=== PATIENT | female | born 1955 | race Caucasian/White ===

== ENCOUNTER 2020-09-18 02:13 | Inpatient (IN) | payer MEDICARE, MEDICAID, SELFPAY ==
[2020-09-18] VITALS (39 sets, daily range): BP systolic 88–149; BP diastolic 49–78; PULSE 85–106; RESP 14–46; TEMP 37.1–38.1; O2SAT 56–91; BMI 47.5; BMI 47.3
--- NOTE | 2020-09-18 02:17 | XR_ITS ---
EXAMINATION: XR CHEST CLINICAL INFORMATION: Shortness of breath COMPARISON: None TECHNIQUE: Frontal view of the chest was obtained. FINDINGS: Lung volumes are symmetric. There are extensive multifocal regions of airspace opacity bilaterally. No pneumothorax is seen. No significant pleural effusion. The cardiomediastinal contour is unremarkable. No acute osseous findings are seen. XR/XR chest 1V IMPRESSION: Extensive multifocal bilateral airspace opacities which could be secondary to pneumonia or edema in the proper clinical setting.
--- NOTE | 2020-09-18 02:17 | ECG_ITS ---
Test Reason : DYSPNEA Blood Pressure : / mmHG Vent. Rate : 102 BPM Atrial Rate : 102 BPM P-R Int : 000 ms QRS Dur : 072 ms QT Int : 336 ms P-R-T Axes : 000 -35 034 degrees QTc Int : 437 ms Artifact in tracing Normal sinus rhythm Left axis deviation RSR' or QR pattern in V1 suggests right ventricular conduction delay Abnormal ECG No previous ECGs available Referred By: Eleonora Oshea Electronically Signed By:GUTIERREZ ESCALANTE
[2020-09-18] MEDS: Enoxaparin Sodium 40 MG/0.4 ML SYRINGE SUBCUT (02:39)
[2020-09-18] MEDS: dexAMETHasone sod phosphate 10 MG in 0.9 % Sodium Chloride 50 ML 204 MG IV (02:40)
--- NOTE | 2020-09-18 02:55 | ED_ITS ---
HPI - URI/Sore Throat General Chief Complaint: Upper Respiratory Symptoms Stated Complaint: Sob, covid positive Time Seen by Provider: 09/18/20 02:15 History of Present Illness HPI Narrative: Patient is a 65-year-old female with a history of diabetes, hypertension. Tested positive for coronavirus last week. Presents today with having increasing coughing shortness of breath tonight. with increased work of breathing. Patient was sent in for further evaluation. Positive fever. pat ient unable to give details secondary to extreme shortness of breath. Related Data Home Medications Medication Instructions Recorded Confirmed dulaglutide [Trulicity] 0.75 mg SUBCUT USEASDIRECTD 09/18/20 09/18/20 levothyroxine 50 mcg PO DAILY 09/18/20 09/18/20 losartan-hydrochlorothiazide 100 tab PO DAILY 09/18/20 09/18/20 metformin 500 mg PO BID 09/18/20 09/18/20 omeprazole 20 mg PO DAILY 09/18/20 09/18/20 paroxetine HCl 40 mg PO DAILY 09/18/20 09/18/20 rosuvastatin 40 mg PO DAILY 09/18/20 09/18/20 Allergies Allergy/AdvReac Type Severity Reaction Status Date / Time No Known Allergies Allergy Verified 09/18/20 02:16 Review of Systems Review of Systems: Unable to obtain review of systems secondary to patient's shortness of breath Yes Unobtainable due to mental condition [facility] Past Medical History [facility] Narrative: patient has a history of diabetes Social History Social History Alcohol intake: unknown Smoking Status: Unknown if ever smoked Use of substances other than those prescribed or required for medical reasons: Unknown Advance Directives: No Physical Exam Vital Signs: Vital Signs: Last Vital Signs Temp 98.8 F 09/18/20 02:18 Pulse 94 09/18/20 05:19 Resp 40 H 09/18/20 05:33 BP 106/64 09/18/20 05:19 Pulse Ox 88 L 09/18/20 05:19 Body Mass Index 47.5 Appearance: Alert. Oriented X3. No acute distress. Eyes: Pupils equal, round and reactive to light. ENT: Pharynx normal. Neck: Normal inspection. Neck supple. No lymph nodes noted. No crepitus CVS: Normal heart rate and rhythm. Pulses normal. Normal S1 and S2 Respiratory: positive increased respiratory rate. Positive wheezing noted bilaterally Abdomen: Soft and nontender. No rigidity. No distention. good BS x4 Skin: Skin warm and dry. Normal skin color. Normal skin turgor. Extremities: No lower extremity edema. Neurovascular intact to all extremities. No Lacerations. No Rash Neuro: Oriented X 3. No motor deficit. No sensory deficit. Moving all exte rmities. No slurred speech Course Reevaluation(s) Reevaluation #1: patient has extreme shortness of breath. Respiratory rate in the 40s. O2 sat in the 70s on a non-rebreather. Placed on high-flow O2. Placed on a non-rebreather. Given additional neb treatment. Patient's O2 sat is maintaining at approximately 88-90 at this point. Given IV fluids for the hypotension. Chest x-ray ordered. Steroids ordered. Ramdicivir ordered. Lovenox ordered. Case discussed with intensive care unit. Will come down evaluate patient. MDM - URI/Sore Throat MDM Narrative Medical decision making narrative: Patient is placed on non-rebreather with high-flow O2. O2 sat maintained at approximately 90%. Respiratory rate has dropped to approximately 35 after morphine was given. Symptomatic relief pat ient feel improved. Started patient on steroid. Lovenox given. Chest x-ray consistent with having coronavirus pneumonia. Patient's coronavirus test came back positive. Initially patient appeared dehydrated. Lactate was 3.7. 2 L of fluid was given. After consultation with hydrodynamics professor. One dose of doxycycline was given. Given patient has Coronavirus 19. [place] at this time 30 cc/kilos a Na 130 kilos woman will be too much to handle. Elect to monitor after 2 L of fluid after discussion with the hydrodynamics professor. Patient's case also discussed with the hospitalist team. Final decision for admission to the intensive care unit versus IMC will be made at approximately 06:30. Patient is full code.. patient is seen by the hydrodynamics professor will admit to the ICU. Lab Data Attestation: I reviewed the patient's lab results. Result diagrams: 09/18/20 06:31 09/18/20 02:47 Labs: Lab Results 09/18/20 09/18/20 09/18/20 Range/Units 02:46 02:47 02:47 WBC (4.8-10.8) X10*3/uL RBC (4.20-5.50) X10*6/uL Hgb (12.0-16.0) g/dl Hct (37-47) % MCV (80-98) fL MCH (27.0-33.0) pg MCHC (31.0-35.0) g/dl RDW (11.0-16.0) % Plt Count (160-400) X10*3/uL MPV (9.4-12.3) fL Immature Gran % (Auto) (0.0-0.4) % Neut % (Auto) (45-73) % Lymph % (Auto) (20-40) % [place] % (Auto) (2-11) % Eos % (Auto) (0-4) % Baso % (Auto) (0-2) % Lymph # (Auto) (1.2-4.9) X10*3/uL [place] # (Auto) (0.1-1.2) X10*3/uL Eos # (Auto) (0.0-0.4) X10*3/uL Baso # (Auto) (0.0-0.2) X10*3/uL Abs Immat Gran (auto) (0.00-0.03) X10*3/uL Absolute Neuts (auto) (2.0-8.3) X10*3/uL Absolute Nucleated RBC (0.0-0.012) X10*3/uL Nucleated RBC % (auto) (0.0-0.2) /100WBC D-Dimer 781 NG/ML Hold Blue Top Sodium 137 (135-145) mmol/L Potassium 4.8 (3.3-5.1) mmol/l Chloride 100 (96-108) mmol/L Carbon Dioxide 21 L (22-29) mmol/L Anion Gap 21 H (12-20) BUN 19 H (9-16) mg/dL Creatinine 0.85 (0.5-1.4) mg/dL Estim Creat Clear Calc 88.3 Estimated GFR > 60 Random Glucose 249 H (60-115) mg/dL Lactic Acid 3.7 H* (0.5-2.0) mmol/L Calcium 8.3 L (8.4-10.2) mg/dL Lactate Dehydrogenase 497 H (122-220) U/L Troponin I High Sens (<3.5-17.0) ng/L C-Reactive Protein 34.51 H (< or = 0.50) mg/dL B-Natriuretic Peptide (<100) pg/mL Coronavirus (PCR) (Negative) Influenza Type A (PCR) (Negative) Influenza Type B (PCR) (Negative) RSV RNA Qual (PCR) (Negative) 09/18/20 09/18/20 09/18/20 Range/Units 02:47 02:47 02:47 WBC 16.3 H (4.8-10.8) X10*3/uL RBC 4.84 (4.20-5.50) X10*6/uL Hgb 12.5 (12.0-16.0) g/dl Hct 39.9 (37-47) % MCV 82.4 (80-98) fL MCH 25.8 L (27.0-33.0) pg MCHC 31.3 (31.0-35.0) g/dl RDW 15.3 (11.0-16.0) % Plt Count 283 (160-400) X10*3/uL MPV 10.7 (9.4-12.3) fL Immature Gran % (Auto) 2.1 H (0.0-0.4) % Neut % (Auto) 87.4 H (45-73) % Lymph % (Auto) 5.9 L (20-40) % [place] % (Auto) 4.4 (2-11) % Eos % (Auto) 0.0 (0-4) % Baso % (Auto) 0.2 (0-2) % Lymph # (Auto) 1.0 L (1.2-4.9) X10*3/uL [place] # (Auto) 0.7 (0.1-1.2) X10*3/uL Eos # (Auto) 0.0 (0.0-0.4) X10*3/uL Baso # (Auto) 0.0 (0.0-0.2) X10*3/uL Abs Immat Gran (auto) 0.34 H (0.00-0.03) X10*3/uL Absolute Neuts (auto) 14.2 H (2.0-8.3) X10*3/uL Absolute Nucleated RBC 0.070 H (0.0-0.012) X10*3/uL Nucleated RBC % (auto) 0.4 H (0.0-0.2) /100WBC D-Dimer NG/ML Hold Blue Top SEE NOTE Sodium Cancelled (135-145) mmol/L Potassium Cancelled (3.3-5.1) mmol/l Chloride Cancelled (96-108) mmol/L Carbon Dioxide Cancelled (22-29) mmol/L Anion Gap Cancelled (12-20) BUN Cancelled (9-16) mg/dL Creatinine Cancelled (0.5-1.4) mg/dL Estim Creat Clear Calc Cancelled Estimated GFR Cancelled Random Glucose Cancelled (60-115) mg/dL Lactic Acid (0.5-2.0) mmol/L Calcium Cancelled (8.4-10.2) mg/dL Lactate Dehydrogenase (122-220) U/L Troponin I High Sens (<3.5-17.0) ng/L C-Reactive Protein (< or = 0.50) mg/dL B-Natriuretic Peptide (<100) pg/mL Coronavirus (PCR) (Negative) Influenza Type A (PCR) (Negative) Influenza Type B (PCR) (Negative) RSV RNA Qual (PCR) (Negative) 09/18/20 09/18/20 09/18/20 Range/Units 02:47 02:49 04:31 WBC (4.8-10.8) X10*3/uL RBC (4.20-5.50) X10*6/uL Hgb (12.0-16.0) g/dl Hct (37-47) % MCV (80-98) fL MCH (27.0-33.0) pg MCHC (31.0-35.0) g/dl RDW (11.0-16.0) % Plt Count (160-400) X10*3/uL MPV (9.4-12.3) fL Immature Gran % (Auto) (0.0-0.4) % Neut % (Auto) (45-73) % Lymph % (Auto) (20-40) % [place] % (Auto) (2-11) % Eos % (Auto) (0-4) % Baso % (Auto) (0-2) % Lymph # (Auto) (1.2-4.9) X10*3/uL [place] # (Auto) (0.1-1.2) X10*3/uL Eos # (Auto) (0.0-0.4) X10*3/uL Baso # (Auto) (0.0-0.2) X10*3/uL Abs Immat Gran (auto) (0.00-0.03) X10*3/uL Absolute Neuts (auto) (2.0-8.3) X10*3/uL Absolute Nucleated RBC (0.0-0.012) X10*3/uL Nucleated RBC % (auto) (0.0-0.2) /100WBC D-Dimer NG/ML Hold Blue Top Sodium (135-145) mmol/L Potassium (3.3-5.1) mmol/l Chloride (96-108) mmol/L Carbon Dioxide (22-29) mmol/L Anion Gap (12-20) BUN (9-16) mg/dL Creatinine (0.5-1.4) mg/dL Estim Creat Clear Calc Estimated GFR Random Glucose (60-115) mg/dL Lactic Acid 2.4 H* (0.5-2.0) mmol/L Calcium (8.4-10.2) mg/dL Lactate Dehydrogenase (122-220) U/L Troponin I High Sens 48.8 H (<3.5-17.0) ng/L C-Reactive Protein (< or = 0.50) mg/dL B-Natriuretic Peptide 156 H (<100) pg/mL Coronavirus (PCR) POSITIVE A (Negative) Influenza Type A (PCR) NEGATIVE (Negative) Influenza Type B (PCR) NEGATIVE (Negative) RSV RNA Qual (PCR) NEGATIVE (Negative) ECG Data Attestation: I personally reviewed and interpreted this ECG as follows: Interpretation: Sinus heart rate is 100 , NE QRS QT within normal limits, no acute ST segment elevation noted. Critical Care Time Critical Care Time Total Critical Care Time: 120 Attestation: I have personally provided 120 minutes of critical care time exclusive of time spent on separately billable procedures. Time includes review of lab data, radiology results, discussion with consultants, and monitoring for potential decompensation. Interventions were performed as documented above Discharge Plan Discharge Clinical Impression: COVID-19, Respiratory failure Patient Disposition: Admitted As Inpatient
[2020-09-18 02:57] LABS: MANUAL DIFF FLAG NO
[2020-09-18 02:58] LABS: Basophils Percent Auto 0.2 % (0-2); Hematocrit 39.9 % (37-47); Hemoglobin 12.5 g/dl (12.0-16.0); Imm Gran Abs Auto 0.34 X10*3/uL (0.00-0.03); Imm Gran Pct Auto 2.1 % (0.0-0.4); Lymphocytes Percent Auto 5.9 % (20-40); Mean Corpuscular HGB Conc 31.3 g/dl (31.0-35.0); Mean Corpuscular Hemoglobin 25.8 pg (27.0-33.0); Mean Corpuscular Volume 82.4 fL (80-98); Mean Platelet Volume 10.7 fL (9.4-12.3); Monocytes Absolute Auto 0.7 X10*3/uL (0.1-1.2); Monocytes Percent Auto 4.4 % (2-11); NRBC Pct Auto 0.4 /100WBC (0.0-0.2); Neutrophils Absolute Auto 14.2 X10*3/uL (2.0-8.3); Neutrophils Percent Auto 87.4 % (45-73); Platelet Count 283 X10*3/uL (160-400); Red Blood Count 4.84 X10*6/uL (4.20-5.50); Red Cell Distribution Width 15.3 % (11.0-16.0); White Blood Count 16.3 X10*3/uL (4.8-10.8)
[2020-09-18] MEDS: Morphine Sulfate 2 MG/ML CARTRIDGE IVPUSH ×5 (03:16→11:50)
[2020-09-18 03:31] LABS: Lactic Acid 3.7 mmol/L (0.5-2.0)
[2020-09-18 03:32] LABS: Anion Gap 21 (12-20); Blood Urea Nitrogen 19 mg/dL (9-16); Calcium 8.3 mg/dL (8.4-10.2); Carbon Dioxide 21 mmol/L (22-29); Chloride 100 mmol/L (96-108); Creatinine Clr Calc Pharmacy 88.3; Estimated Glomerular Filt Rate > 60; Glucose Random 249 mg/dL (60-115); Lactate Dehydrogenase 497 U/L (122-220); Potassium 4.8 mmol/l (3.3-5.1); Sodium 137 mmol/L (135-145)
--- NOTE | 2020-09-18 03:35 | PC.NURSE ---
CRITICAL LAB - LACTIC ACID 3.7 DR. JORGE AWARE OF RESULT, RN NOTIFIED.
[2020-09-18] MEDS: 0.9 % Sodium Chloride 1,000 ML 999 ML IV (03:38)
[2020-09-18 03:39] LABS: B Type Natriuretic Peptide 156 pg/mL (<100); Troponin-I High Sensitivity 48.8 ng/L (<3.5-17.0)
[2020-09-18 03:43] LABS: C Reactive Protein 34.51 mg/dL (< or = 0.50)
[2020-09-18 03:44] LABS: Influenza A PCR NEGATIVE (Negative); Influenza B PCR NEGATIVE (Negative); Resp Syncy Virus RNA Qual PCR NEGATIVE (Negative)
--- NOTE | 2020-09-18 03:46 | PC.NURSE ---
RECEIVED PHONE CALL FROM [employer]ACHINE TENDER. CALLED ON-CALL PHARMACIST. RAMDESEVIR ONLY TO BE GIVEN DURING DAY TIME. NEEDS PRIOR APPROVAL FROM LILLY WILCOX OR LITZY VAZQUEZ, CLINICAL PHARMACIST.
[2020-09-18 04:09] LABS: SARS COV2 PCR INHOUSE POSITIVE (Negative)
[2020-09-18 04:24] LABS: D Dimer 781 NG/ML
[2020-09-18 04:51] LABS: Reflex Lactate? Lactic Acid Added
[2020-09-18 05:18] LABS: Lactic Acid 2.4 mmol/L (0.5-2.0)
--- NOTE | 2020-09-18 05:22 | PM.CCHP ---
History of Present Illness Date of Service: 09/18/20 <DEEPAK Bolden - Last Filed: 09/18/20 19:46> Chief Complaint: hypoxic respiratory failure/ viral sepsis/COVID 19 <DEEPAK Bolden - Last Filed: 09/18/20 19:46> 65-year-old female with underlying history of hypertension, hyperlipidemia, diabetes, GERD, hypothyroidism presented to the emergency room overnight with complaints of having increased cough and shortness of breath for 1 day, difficulty breathing and a fever, partly she tested positive for coronavirus 1 week ago. In the emergency room initially the patient was normotensive and afebrile her O2 sat was 88% on room air she did not appear to be in any acute distress however she quickly deteriorated and developed tachypnea with respiratory rate in the 40s, hypoxia in the 70s on a non-rebreather mask she was also placed on high-flow O2. She became hypotensive, she had been started on steroids, given nebs, Lovenox and chest x-ray was obtained. This showed diffuse patchy infiltrates in the bilateral lung [place] which may be consistent with pneumonia or pulmonary edema, however given her positive cope with this is likely to represent a COVID lung. Subsequently had workup revealed a white count of 16.3 H&H of 12.5 and 39.9. Normal electrolytes and creatinine with blood sugar of 249. Lactic acid is 3.7;, troponin 48.8, BNP 156, CRP 34, D-dimer 780. Patient was given gentle amount of fluids for the 1 concern that the patient may fluid overload. She was given some morphine for respiratory distress which did help some. Currently the patient appears to have some med for breathing, breathing at 28 breaths per minute, she is normotensive and her O2 sat 90% on a high-flow non-rebreather mask with 100% FiO2. Given the high risk of decompensation, patient will be transferred to ICU. ROS: Unable to obtain due to respiratory distress Past Medical History: As above Past Surgical History: As above Family history: Unknown Social History: It is unknown if the patient was ever smoker, drinker if she ever use any drugs CODE STATUS: Full code Baseline Functionality: Unknown Allergies: No known drug allergies Home Medications: Please see med rec PHYSICAL EXAM: Sepsis exam done at 5:00 a.m. VS: Blood pressure 106/64, heart rate 94, respirations 30, O2 sat 88% on high-flow nasal cannula and non-rebreather mask was flow rate of 60%. Temperature 98.8?. ?General: Alert oriented x3 mild respiratory distress and tachypnea. Follows commands. ?Skin: Intact, no lesions, edema, erythema, clubbing or cyanosis. No ulcers. ?HEENT: Head is normocephalic, atraumatic, pupils equal round reactive to light accommodation bilaterally. Extraocular movements appear intact. Buccal mucosa is moist, Neck is supple without lymphadenopathy. ?Cardiac: Clear S1-S2, no murmurs rubs or gallops. ?Pulmonary: Coarse lung sounds bilaterally and throughout both lungs without wheezes, no clear crackles or rhonchi. ?Abdomen: Protuberant, positive bowel sounds in all 4 quadrants. Soft, nontender, no rebound or guarding. ?Musculoskeletal: Moving all 4 extremities upon request a major joints, there is no crepitus or tenderness. The strength is 5/5 bilaterally and throughout all 4 extremities. Gait not assessed at this point. ?Neurologic: As above, cranial nerves 2-12 are grossly intact. No focal deficits noted. Motor strength as above. ?Vascular: 2+ pulses upper and lower extremities distally. Less than 2nd capillary refill of the fingers and toes. SIGNIFICANT LABORATORY DATA: As above REVIEW OF IMAGES: Chest x-ray Extensive multifocal bilateral airspace opacities which could be secondary to pneumonia or edema in the proper clinical setting. EKG REVIEW: To be obtained ASSESSMENT AND PLAN: 1. Acute hypoxic respiratory failure 2. Viral sepsis in the setting of COVID-19 3. History of diabetes 4. Essential hypertension 5. Abnormal troponin likely reactive 6. Acute kidney injury with BUN to creatinine ratio more than 20 likely due to volume loss insensible losses 7. lactic and metabolic acidosis due to # 2; as well as metformin intake Admit to ICU, vital signs, I's and O's, continue with high-flow and non-rebreather mask, prone positioning; obtain COVID 19 biomarkers daily, insulin sliding scale and hold blood pressure medications for now. Recheck troponin and lactic acid, gentle hydration and recheck laboratories in the morning. Start her on steroids. Ekg if not done in ER. Will discuss with Dr. Fonseca for the possibility to place this patient on the [facility] COVID protocol. GI PROPHYLAXIS: Protonix DVT PROPHYLAXIS: Lovenox 1mg/kg Critical care time used for critical evaluation of this patient, diagnosis, treatment and coordination of care, review her records and documentation TOTAL CRITICAL CARE TIME 90 MIN . Patient's care was discussed in detail with Dr. Fonseca. He is aware of all the above as well as the plan of care for this patient. <DEEPAK Bolden - Last Filed: 09/18/20 19:46> [facility] Social History Social History: Social History Alcohol intake: unknown Smoking Status: Unknown if ever smoked Use of substances other than those prescribed or required for medical reasons: Unknown Advance Directives: No service: No Current occupational status: retired <DEEPAK Bolden - Last Filed: 09/18/20 19:46> Meds Allergies/Adverse reactions: Allergies Allergy/AdvReac Type Severity Reaction Status Date / Time No Known Allergies Allergy Verified 09/18/20 02:16 <DEEPAK Bolden - Last Filed: 09/18/20 19:46> Home medications: Home Medications Medication Instructions Recorded Confirmed Type clonazepam 0.5 mg PO BEDTIME 09/18/20 09/18/20 History dulaglutide [Trulicity] 0.75 mg SUBCUT USEASDIRECTD 09/18/20 09/18/20 History levothyroxine 75 mcg PO DAILY@0600 09/18/20 09/18/20 History omeprazole 20 mg PO DAILY 09/18/20 09/18/20 History paroxetine HCl 40 mg PO DAILY 09/18/20 09/18/20 History rosuvastatin 40 mg PO DAILY 09/18/20 09/18/20 History <DEEPAK Bolden - Last Filed: 09/18/20 19:46> Physical Exam Vital Signs: Vital Signs: Last Vital Signs Temp 98.8 F 09/18/20 02:18 Pulse 94 09/18/20 05:19 Resp 30 H 09/18/20 05:19 BP 106/64 09/18/20 05:19 Pulse Ox 88 L 09/18/20 05:19 Body Mass Index 47.5 <DEEPAK Bolden - Last Filed: 09/18/20 19:46> Results Labs CBC and Chem 7: : 09/18/20 06:31 09/18/20 06:31 <DEEPAK Bolden - Last Filed: 09/18/20 19:46> Labs: Laboratory Results - last 24 hr 09/18/20 09/18/20 09/18/20 02:46 02:47 02:47 MCV MCH MCHC RDW Plt Count MPV Immature Gran % (Auto) Neut % (Auto) Lymph % (Auto) [place] % (Auto) Eos % (Auto) Baso % (Auto) Lymph # (Auto) [place] # (Auto) Eos # (Auto) Baso # (Auto) Abs Immat Gran (auto) Absolute Neuts (auto) Absolute Nucleated RBC Nucleated RBC % (auto) D-Dimer 781 Hold Blue Top Anion Gap 21 H Estim Creat Clear Calc 88.3 Estimated GFR > 60 Random Glucose 249 H Lactic Acid 3.7 H* Calcium 8.3 L Lactate Dehydrogenase 497 H Troponin I High Sens C-Reactive Protein 34.51 H B-Natriuretic Peptide Coronavirus (PCR) Influenza Type A (PCR) Influenza Type B (PCR) RSV RNA Qual (PCR) 09/18/20 09/18/20 09/18/20 02:47 02:47 02:47 MCV 82.4 MCH 25.8 L MCHC 31.3 RDW 15.3 Plt Count 283 MPV 10.7 Immature Gran % (Auto) 2.1 H Neut % (Auto) 87.4 H Lymph % (Auto) 5.9 L [place] % (Auto) 4.4 Eos % (Auto) 0.0 Baso % (Auto) 0.2 Lymph # (Auto) 1.0 L [place] # (Auto) 0.7 Eos # (Auto) 0.0 Baso # (Auto) 0.0 Abs Immat Gran (auto) 0.34 H Absolute Neuts (auto) 14.2 H Absolute Nucleated RBC 0.070 H Nucleated RBC % (auto) 0.4 H D-Dimer Hold Blue Top SEE NOTE Anion Gap Cancelled Estim Creat Clear Calc Cancelled Estimated GFR Cancelled Random Glucose Cancelled Lactic Acid Calcium Cancelled Lactate Dehydrogenase Troponin I High Sens C-Reactive Protein B-Natriuretic Peptide Coronavirus (PCR) Influenza Type A (PCR) Influenza Type B (PCR) RSV RNA Qual (PCR) 09/18/20 09/18/20 09/18/20 02:47 02:49 04:31 MCV MCH MCHC RDW Plt Count MPV Immature Gran % (Auto) Neut % (Auto) Lymph % (Auto) [place] % (Auto) Eos % (Auto) Baso % (Auto) Lymph # (Auto) [place] # (Auto) Eos # (Auto) Baso # (Auto) Abs Immat Gran (auto) Absolute Neuts (auto) Absolute Nucleated RBC Nucleated RBC % (auto) D-Dimer Hold Blue Top Anion Gap Estim Creat Clear Calc Estimated GFR Random Glucose Lactic Acid 2.4 H* Calcium Lactate Dehydrogenase Troponin I High Sens 48.8 H C-Reactive Protein B-Natriuretic Peptide 156 H Coronavirus (PCR) POSITIVE A Influenza Type A (PCR) NEGATIVE Influenza Type B (PCR) NEGATIVE RSV RNA Qual (PCR) NEGATIVE <DEEPAK Bolden - Last Filed: 09/18/20 19:46> Imaging Radiologist's Impressions: Impressions Chest X-Ray 09/18/20 02:17 IMPRESSION: Extensive multifocal bilateral airspace opacities which could be secondary to pneumonia or edema in the proper clinical setting. <DEEPAK Bolden - Last Filed: 09/18/20 19:46>
[2020-09-18] MEDS: Doxycycline Hyclate 100 MG in 0.9 % Sodium Chloride 250 ML 166.67 MG IV ×2 (05:43→18:23)
--- NOTE | 2020-09-18 06:14 | PC.NURSE ---
PER WILL HOLD MEDS PUT IN BY ITENSIVIST UNTIL HE COMES TO CONSULT PT. PER WILL BE HERE APPROX [id number]
[2020-09-18 06:42] LABS: MANUAL DIFF FLAG NO
[2020-09-18 06:44] LABS: PCO2 VBG 53 mmhg; pH VBG 7.29 (7.32-7.43)
[2020-09-18 06:45] LABS: Base Excess VBG -2.5 mmol/L; Basophils Percent Auto 0.1 % (0-2); Blood Gas Serial # 5396; HCO3 VBG 25 mmol/L; Hematocrit 38.4 % (37-47); Hemoglobin 11.8 g/dl (12.0-16.0); Imm Gran Abs Auto 0.34 X10*3/uL (0.00-0.03); Imm Gran Pct Auto 2.3 % (0.0-0.4); Lymphocytes Absolute Auto 0.7 X10*3/uL (1.2-4.9); Lymphocytes Percent Auto 4.8 % (20-40); Mean Corpuscular HGB Conc 30.7 g/dl (31.0-35.0); Mean Corpuscular Hemoglobin 25.4 pg (27.0-33.0); Mean Corpuscular Volume 82.6 fL (80-98); Monocytes Absolute Auto 0.5 X10*3/uL (0.1-1.2); Monocytes Percent Auto 3.2 % (2-11); NRBC Pct Auto 0.5 /100WBC (0.0-0.2); Neutrophils Absolute Auto 13.1 X10*3/uL (2.0-8.3); Neutrophils Percent Auto 89.6 % (45-73); Oxygen Saturation VBG 82.5 %; PO2 VBG 53 mmhg; Platelet Count 261 X10*3/uL (160-400); Red Blood Count 4.65 X10*6/uL (4.20-5.50); Red Cell Distribution Width 15.5 % (11.0-16.0); White Blood Count 14.7 X10*3/uL (4.8-10.8)
[2020-09-18 06:46] LABS: Reflex Lactate? Lactic Acid Added
[2020-09-18 06:59] LABS: INTERNATIONAL NORM RATIO 1.5 (0.9-1.1); Prothrombin Time 17.4 SEC (10.8-13.0)
[2020-09-18 07:02] LABS: D Dimer 713 NG/ML; Partial Thromboplastin Time 44.9 SEC (24.1-38.0)
[2020-09-18 07:05] LABS: Lactic Acid 1.8 mmol/L (0.5-2.0)
[2020-09-18 07:14] LABS: Alanine Aminotransferase 26 U/L (0-31); Albumin Level 2.8 g/dL (3.5-5.0); Alkaline Phosphatase 312 U/L (39-117); Anion Gap 18 (12-20); Aspartate Amino Transferase 40 U/L (5-31); Bilirubin Direct 0.4 mg/dL (0.0-0.5); Bilirubin Total 0.8 mg/dL (0.0-1.0); Blood Urea Nitrogen 19 mg/dL (9-16); Carbon Dioxide 22 mmol/L (22-29); Chloride 103 mmol/L (96-108); Creatinine Clr Calc Pharmacy 92.7; Estimated Glomerular Filt Rate > 60; Glucose Random 256 mg/dL (60-115); Potassium 4.8 mmol/l (3.3-5.1); Sodium 138 mmol/L (135-145); Total Protein 6.6 g/dL (6.5-8.0)
--- NOTE | 2020-09-18 07:19 | PC.NURSE ---
SPOKE WITH DR SANCHEZ REGARDING STEROIDS, INFORMED DECADRON WAS GIVEN ALREADY IN ED. PER DR STANTON,P HOLD SOLUMEDROL AT THIS TIME WELL LOVENOX. REPORT GIVEN TO DEVON IN ICU. PT TO BE TRNASFERED TO UNIT. MORPHINE GIVEN ORDERED.
[2020-09-18 07:27] LABS: C Reactive Protein 34.94 mg/dL (< or = 0.50)
[2020-09-18 07:29] LABS: Procalcitonin 0.97 ng/mL
[2020-09-18 07:32] LABS: Ferritin 208 ng/mL (10-250)
[2020-09-18 08:48] LABS: Glucose, Whole Blood 257 mg/dL (60-115)
[2020-09-18] MEDS: Insulin Lispro 100 UNIT/ML 3 ML VIAL SUBCUT ×2 (09:00→12:15)
[2020-09-18 09:12] LABS: ~Lactic Acid-LAB USE ONLY 1.6 mmol/L (0.5-2.0)
[2020-09-18] MEDS: Pantoprazole Sodium 40 MG/10 ML VIAL IVPUSH (10:25)
[2020-09-18] MEDS: 0.9 % Sodium Chloride 1,000 ML 100 ML IVCONT (10:29)
[2020-09-18] MEDS: Enoxaparin Sodium 150 MG/ML SYRINGE 130 MG SUBCUT (10:40)
[2020-09-18] MEDS: fentaNYL citrate/PF 100 MCG/2 ML VIAL 50 MCG IVPUSH ×3 (11:55→22:49)
[2020-09-18] MEDS: fentaNYL citrate/NS 1,000 MCG/100 ML PLAST..BAG 5 MCG IVCONT (12:00)
[2020-09-18 12:01] LABS: Glucose, Whole Blood 273 mg/dL (60-115)
[2020-09-18] MEDS: methylPREDNISolone Sod Succ/PF 125 MG/2 ML VIAL 60 MG IVPUSH (13:02)
--- NOTE | 2020-09-18 14:05 | MHC.CM.PN ---
IMM 09/18/20 FEMALE 65 DX COVID. She lives alone and is independent. She uses a cane prn. HCP on file. DP home with vna/family transport, vs STR via BLS.CM will follow.
[2020-09-18] MEDS: Insulin Regular/NS 100 UNIT/100 ML PLAST..BAG IVCONT (16:05)
--- NOTE | 2020-09-18 17:34 | P.PNCC_ITS ---
Subjective Subjective Date of Service: 09/18/20 Interval History: Ms. Holloway was admitted to the ICU this morning with acute respiratory failure secondary to bilateral COVID pneumonia. 65-year-old female with underlying history of morbid obesity, hypertension, hyperlipidemia, diabetes, GERD, hypothyroidism presented to the emergency room overnight with complaints of having increased cough and shortness of breath for 1-2 days, difficulty breathing and a fever. Says she tested positive for coronavirus 1 week ago, but has been feeling ill since maybe a couple of days before Thanksgiving. In the emergency room initiall sat was 88% on room air she did not appear to be in any acute distress, however she quickly deteriorated and developed tachypnea with respiratory rate in the 40s, hypoxia in the 70s on a non-rebreather mask she was also placed on high-flow O2. CXR showed diffuse bilat patchy infiltrates consistent with COVID pneumonia. Biomarkers showed DDimer 781, LDH 497, CRP 34, Ferritin 208. She was given gentle amount of fluids and morphine for respiratory distress, Decadron and doxycycline. I saw her in the ED. She was breathing w a RR of 35 but with no increased work of breathing other than that attributable to her respiratory rate. Sat was mid 80s on 100% high-flow plus the non-rebreather set on 15 L. She looked quite comfortable. I asked her if she could breathe like this for the next week and she just shrugged her shoulders. I discussed with her the significance of what was going on and the possibility of her needing to go on a ventilator. She shook her head that she did not want that. She was tx to ICU. The patient was found to have 2 healthcare proxies dated approximately 2013 and 2017, both of which said that she wanted to have DNR stat us. In the ICU, on 100% high-flow plus the non-rebreather set on full flush, sat was in the high 70s. Again I talked to her about the ventilator. I specifically talked to her about the ventilator versus dying. She pointed to the DNR/DNI sign on the white board in her room, and she said that that is what she wants. She made it clear also to her nurse that she did not want to be intubated. We got her on to BiPAP and on BiPAP 07/27/1990 5%, she is satting 88%, RR 30s, Vt 450, and put her on a fentanyl infusion to control her RR and WOB. I spoke to the patient's sister Nydia Owusu ([phone]) who is her healthcare proxy. I confirmed that with the patient. Rebecca told me that she has not spoke with Nydia for about 2 years. Nydia told me that they are estranged. It was choices understanding that Rebecca wanted DNR status. I asked Nydia to talk to her family -- her children and her other sisters -- about whether they were okay with that. For now, the patient will have DNR/DNI status. Critical care time (including mult visits to the bedside, oxygen and then NIV settings): 75+ min. Physical Exam Vital Signs: Vital Signs: Last Vital Signs Temp 100.6 F H 09/18/20 15:57 Pulse 88 09/18/20 15:57 Resp 33 H 09/18/20 15:57 BP 94/52 L 09/18/20 15:57 Pulse Ox 89 L 09/18/20 15:57 Body Mass Index 47.3 Objective Data Labs CBC & Chem 7: 09/18/20 06:31 09/18/20 06:31 Labs: Laboratory Results - last 24 hr 09/18/20 09/18/20 09/18/20 02:46 02:47 02:47 WBC RBC Hgb Hct MCV MCH MCHC RDW Plt Count MPV Immature Gran % (Auto) Neut % (Auto) Lymph % (Auto) Mcmullen % (Auto) Eos % (Auto) Baso % (Auto) Lymph # (Auto) Mcmullen # (Auto) Eos # (Auto) Baso # (Auto) Abs Immat Gran (auto) Absolute Neuts (auto) Absolute Nucleated RBC Nucleated RBC % (auto) PT INR APTT D-Dimer 781 Hold Blue Top VBG pH VBG pCO2 VBG pO2 VBG HCO3 VBG O2 Saturation VBG Base Excess Sodium 137 Potassium 4.8 Chloride 100 Carbon Dioxide 21 L Anion Gap 21 H BUN 19 H Creatinine 0.85 Estim Creat Clear Calc 88.3 Estimated GFR > 60 POC Glucose Random Glucose 249 H Lactic Acid 3.7 H* Lactic Acid Fup @ 2Hr Calcium 8.3 L Ferritin Total Bilirubin Direct Bilirubin AST ALT Alkaline Phosphatase Lactate Dehydrogenase 497 H Troponin I High Sens C-Reactive Protein 34.51 H B-Natriuretic Peptide Total Protein Albumin Procalcitonin Coronavirus (PCR) Influenza Type A (PCR) Influenza Type B (PCR) RSV RNA Qual (PCR) 09/18/20 09/18/20 09/18/20 02:47 02:47 02:47 WBC 16.3 H RBC 4.84 Hgb 12.5 Hct 39.9 MCV 82.4 MCH 25.8 L MCHC 31.3 RDW 15.3 Plt Count 283 MPV 10.7 Immature Gran % (Auto) 2.1 H Neut % (Auto) 87.4 H Lymph % (Auto) 5.9 L Mcmullen % (Auto) 4.4 Eos % (Auto) 0.0 Baso % (Auto) 0.2 Lymph # (Auto) 1.0 L Mcmullen # (Auto) 0.7 Eos # (Auto) 0.0 Baso # (Auto) 0.0 Abs Immat Gran (auto) 0.34 H Absolute Neuts (auto) 14.2 H Absolute Nucleated RBC 0.070 H Nucleated RBC % (auto) 0.4 H PT INR APTT D-Dimer Hold Blue Top SEE NOTE VBG pH VBG pCO2 VBG pO2 VBG HCO3 VBG O2 Saturation VBG Base Excess Sodium Cancelled Potassium Cancelled Chloride Cancelled Carbon Dioxide Cancelled Anion Gap Cancelled BUN Cancelled Creatinine Cancelled Estim Creat Clear Calc Cancelled Estimated GFR Cancelled POC Glucose Random Glucose Cancelled Lactic Acid Lactic Acid Fup @ 2Hr Calcium Cancelled Ferritin Total Bilirubin Direct Bilirubin AST ALT Alkaline Phosphatase Lactate Dehydrogenase Troponin I High Sens C-Reactive Protein B-Natriuretic Peptide Total Protein Albumin Procalcitonin Coronavirus (PCR) Influenza Type A (PCR) Influenza Type B (PCR) RSV RNA Qual (PCR) 09/18/20 09/18/20 09/18/20 02:47 02:49 04:31 WBC RBC Hgb Hct MCV MCH MCHC RDW Plt Count MPV Immature Gran % (Auto) Neut % (Auto) Lymph % (Auto) Mcmullen % (Auto) Eos % (Auto) Baso % (Auto) Lymph # (Auto) Mcmullen # (Auto) Eos # (Auto) Baso # (Auto) Abs Immat Gran (auto) Absolute Neuts (auto) Absolute Nucleated RBC Nucleated RBC % (auto) PT INR APTT D-Dimer Hold Blue Top VBG pH VBG pCO2 VBG pO2 VBG HCO3 VBG O2 Saturation VBG Base Excess Sodium Potassium Chloride Carbon Dioxide Anion Gap BUN Creatinine Estim Creat Clear Calc Estimated GFR POC Glucose Random Glucose Lactic Acid 2.4 H* Lactic Acid Fup @ 2Hr Calcium Ferritin Total Bilirubin Direct Bilirubin AST ALT Alkaline Phosphatase Lactate Dehydrogenase Troponin I High Sens 48.8 H C-Reactive Protein B-Natriuretic Peptide 156 H Total Protein Albumin Procalcitonin Coronavirus (PCR) POSITIVE A Influenza Type A (PCR) NEGATIVE Influenza Type B (PCR) NEGATIVE RSV RNA Qual (PCR) NEGATIVE 09/18/20 09/18/20 09/18/20 06:31 06:31 06:31 WBC 14.7 H RBC 4.65 Hgb 11.8 L Hct 38.4 MCV 82.6 MCH 25.4 L MCHC 30.7 L RDW 15.5 Plt Count 261 MPV 11.0 Immature Gran % (Auto) 2.3 H Neut % (Auto) 89.6 H Lymph % (Auto) 4.8 L Mcmullen % (Auto) 3.2 Eos % (Auto) 0.0 Baso % (Auto) 0.1 Lymph # (Auto) 0.7 L Mcmullen # (Auto) 0.5 Eos # (Auto) 0.0 Baso # (Auto) 0.0 Abs Immat Gran (auto) 0.34 H Absolute Neuts (auto) 13.1 H Absolute Nucleated RBC 0.070 H Nucleated RBC % (auto) 0.5 H PT INR APTT D-Dimer Cancelled Hold Blue Top VBG pH VBG pCO2 VBG pO2 VBG HCO3 VBG O2 Saturation VBG Base Excess Sodium Potassium Chloride Carbon Dioxide Anion Gap BUN Creatinine Estim Creat Clear Calc Estimated GFR POC Glucose Random Glucose Lactic Acid 1.8 Lactic Acid Fup @ 2Hr Calcium Ferritin Total Bilirubin Direct Bilirubin AST ALT Alkaline Phosphatase Lactate Dehydrogenase Troponin I High Sens C-Reactive Protein B-Natriuretic Peptide Total Protein Albumin Procalcitonin Coronavirus (PCR) Influenza Type A (PCR) Influenza Type B (PCR) RSV RNA Qual (PCR) 09/18/20 09/18/20 09/18/20 06:31 06:31 06:31 WBC RBC Hgb Hct MCV MCH MCHC RDW Plt Count MPV Immature Gran % (Auto) Neut % (Auto) Lymph % (Auto) Mcmullen % (Auto) Eos % (Auto) Baso % (Auto) Lymph # (Auto) Mcmullen # (Auto) Eos # (Auto) Baso # (Auto) Abs Immat Gran (auto) Absolute Neuts (auto) Absolute Nucleated RBC Nucleated RBC % (auto) PT INR APTT D-Dimer Hold Blue Top VBG pH 7.29 L VBG pCO2 53 VBG pO2 53 VBG HCO3 25 VBG O2 Saturation 82.5 VBG Base Excess -2.5 Sodium 138 Potassium 4.8 Chloride 103 Carbon Dioxide 22 Anion Gap 18 BUN 19 H Creatinine 0.81 Estim Creat Clear Calc 92.7 Estimated GFR > 60 POC Glucose Random Glucose 256 H Lactic Acid Lactic Acid Fup @ 2Hr Calcium 8.0 L Ferritin 208 Total Bilirubin 0.8 Direct Bilirubin 0.4 AST 40 H ALT 26 Alkaline Phosphatase 312 H Lactate Dehydrogenase Troponin I High Sens C-Reactive Protein 34.94 H B-Natriuretic Peptide Total Protein 6.6 Albumin 2.8 L Procalcitonin 0.97 Coronavirus (PCR) Influenza Type A (PCR) Influenza Type B (PCR) RSV RNA Qual (PCR) 09/18/20 09/18/20 09/18/20 06:31 08:42 08:44 WBC RBC Hgb Hct MCV MCH MCHC RDW Plt Count MPV Immature Gran % (Auto) Neut % (Auto) Lymph % (Auto) Mcmullen % (Auto) Eos % (Auto) Baso % (Auto) Lymph # (Auto) Mcmullen # (Auto) Eos # (Auto) Baso # (Auto) Abs Immat Gran (auto) Absolute Neuts (auto) Absolute Nucleated RBC Nucleated RBC % (auto) PT 17.4 H INR 1.5 H APTT 44.9 H D-Dimer 713 Hold Blue Top VBG pH VBG pCO2 VBG pO2 VBG HCO3 VBG O2 Saturation VBG Base Excess Sodium Potassium Chloride Carbon Dioxide Anion Gap BUN Creatinine Estim Creat Clear Calc Estimated GFR POC Glucose 257 H Random Glucose Lactic Acid Lactic Acid Fup @ 2Hr 1.6 Calcium Ferritin Total Bilirubin Direct Bilirubin AST ALT Alkaline Phosphatase Lactate Dehydrogenase Troponin I High Sens C-Reactive Protein B-Natriuretic Peptide Total Protein Albumin Procalcitonin Coronavirus (PCR) Influenza Type A (PCR) Influenza Type B (PCR) RSV RNA Qual (PCR) 09/18/20 11:53 WBC RBC Hgb Hct MCV MCH MCHC RDW Plt Count MPV Immature Gran % (Auto) Neut % (Auto) Lymph % (Auto) Mcmullen % (Auto) Eos % (Auto) Baso % (Auto) Lymph # (Auto) Mcmullen # (Auto) Eos # (Auto) Baso # (Auto) Abs Immat Gran (auto) Absolute Neuts (auto) Absolute Nucleated RBC Nucleated RBC % (auto) PT INR APTT D-Dimer Hold Blue Top VBG pH VBG pCO2 VBG pO2 VBG HCO3 VBG O2 Saturation VBG Base Excess Sodium Potassium Chloride Carbon Dioxide Anion Gap BUN Creatinine Estim Creat Clear Calc Estimated GFR POC Glucose 273 H Random Glucose Lactic Acid Lactic Acid Fup @ 2Hr Calcium Ferritin Total Bilirubin Direct Bilirubin AST ALT Alkaline Phosphatase Lactate Dehydrogenase Troponin I High Sens C-Reactive Protein B-Natriuretic Peptide Total Protein Albumin Procalcitonin Coronavirus (PCR) Influenza Type A (PCR) Influenza Type B (PCR) RSV RNA Qual (PCR) Progress Note: A&P Time Spent With Patient Time: Total time spent is greater than 50% in coordination of care (as docu mented) at patient's floor/unit and/or counseling patient: Total time spent with greater than 50% in coordination of care (as documented) at patient's floor/unit and/or counseling patient:: 0 Critical Care Time Critical Care Time (minutes): 90
[2020-09-18 18:18] LABS: Glucose, Whole Blood 171 mg/dL (60-115)
[2020-09-18 18:18] LABS: Glucose, Whole Blood 217 mg/dL (60-115)
--- NOTE | 2020-09-18 21:03 | PC.NURSE ---
ADMITTED FROM ED. IDENTIFIED DNR/DNI BY ALERT AND ORIENTED PATIENT ON ARRIVAL; IDENTIFIED HER HCP AND THAT RECORDS ON FILE WITH DR. GERSON TAFOYA; MD NOTIFIED AND DNR RECORDS OBTAINED FROM [facility] BY [employer]. MD AWARE. IN RESPIRATORY FAILURE ON ARRIVAL; CYANOTIC: BLUEISH LIPS, EARTIPS; TOES LOOKING SLIGHTLY CYANOTIC AND COOL; TACHYPNEA RR 30'S-40'S. MEDICATIONS CLARIFIED WITH MD AND RESCHEDULED WITH PHARMACY. PATIENT WAS ON NRB AND HI FLOW 100%; SPO2 WAS 70-83 ON ARRIVAL. MD AT BEDSIDE AND RT AT BEDSIDE. PATIENT PLACED ON BIPAP AFTER CONSENTING TO TRIAL. RT ADJUSTING AND NOW 14/10 95% FIO2; GOAL TV 450 AND ABOVE MAINTAINED. RR 30'S-44. MD ORDERED PRN MORPHINE 2 MG IV X2; ADMINSITERED. MD ORDERED PRN 50 MCG FENTANYL IV FOLLOWED BY INITIATE FENTANYL GTT AT 50/HR; THIS WAS DONE WITH GOOD EFFECT. DISCUSSED PRONING PATIENT WITH RT AND MD; PATIENT SUCCESSFULLY PRONED AND ROTATED RIGHT AND LEFT LEANING PRONING WITH GOOD EFFECT. SPO2 HIGH 92%; MOSTLY 86-88%. MD AWARE AND DISCUSSED PERIODS OF HYPOXIA 74-81%; MD AWARE. PATIENT SISTER GLORIA UPDATED.
--- NOTE | 2020-09-18 21:10 | PC.NURSE ---
INSULIN GTT TITRATED PER DR. SANCHEZ ORDERS
[2020-09-18] MEDS: methylPREDNISolone Sod Succ/PF 125 MG/2 ML VIAL 80 MG IVPUSH (22:23)
[2020-09-18] MEDS: Enoxaparin Sodium 150 MG/ML SYRINGE 120 MG SUBCUT (22:24)
[2020-09-18] MEDS: Famotidine/PF 20 MG/2 ML VIAL 40 MG IVPUSH (22:26)
[2020-09-18 22:55] LABS: Glucose, Whole Blood 169 mg/dL (60-115)
[2020-09-19] VITALS (28 sets, daily range): BP systolic 102–157; BP diastolic 47–88; PULSE 82–106; RESP 15–42; TEMP 36.9–37.7; O2SAT 86–95; BMI 46.4
[2020-09-19 03:16] LABS: Glucose, Whole Blood 169 mg/dL (60-115)
[2020-09-19] MEDS: Doxycycline Hyclate 100 MG in 0.9 % Sodium Chloride 250 ML 166.67 MG IV (05:53)
[2020-09-19 06:30] LABS: MANUAL DIFF FLAG NO
[2020-09-19 06:39] LABS: Glucose, Whole Blood 181 mg/dL (60-115)
--- NOTE | 2020-09-19 06:40 | PC.NURSE ---
Assumed care of pt at 1900. Pt on bipap with settings of 14/10 and 95% o2. o2 sats 82-88% when this Rn assumed care of pt and resp rate 30-40. With repositioning, pt desats to 70's. She will recover back to 88% with deep breathing exercises but O2 increased to 100%. O2 sats improved into the 90's. Pt lethargic at first but seemed to become more responsive and was able to follow commands. O2 sats best with pt on her side almost prone. Bp stable. Monitor shows NSR, 70-80's, no ectopy. U/O is 30-50 ml/hr.
[2020-09-19 06:47] LABS: Basophils Percent Auto 0.2 % (0-2); Hematocrit 35.8 % (37-47); Hemoglobin 10.8 g/dl (12.0-16.0); Imm Gran Abs Auto 0.16 X10*3/uL (0.00-0.03); Imm Gran Pct Auto 1.7 % (0.0-0.4); Lymphocytes Absolute Auto 0.8 X10*3/uL (1.2-4.9); Mean Corpuscular HGB Conc 30.2 g/dl (31.0-35.0); Mean Corpuscular Hemoglobin 25.7 pg (27.0-33.0); Mean Corpuscular Volume 85.2 fL (80-98); Mean Platelet Volume 11.4 fL (9.4-12.3); Monocytes Absolute Auto 0.3 X10*3/uL (0.1-1.2); Monocytes Percent Auto 2.7 % (2-11); NRBC Pct Auto 0.5 /100WBC (0.0-0.2); Neutrophils Absolute Auto 8.1 X10*3/uL (2.0-8.3); Neutrophils Percent Auto 86.4 % (45-73); Platelet Count 243 X10*3/uL (160-400); Red Cell Distribution Width 15.9 % (11.0-16.0); White Blood Count 9.4 X10*3/uL (4.8-10.8)
[2020-09-19 06:53] LABS: D Dimer 925 NG/ML
[2020-09-19 06:56] LABS: Base Excess VBG 2.5 mmol/L; HCO3 VBG 29 mmol/L; Oxygen Saturation VBG 87.1 %; PCO2 VBG 57 mmhg; PO2 VBG 56 mmhg; pH VBG 7.33 (7.32-7.43)
[2020-09-19 07:07] LABS: Anion Gap 16 (12-20); Blood Urea Nitrogen 19 mg/dL (9-16); C Reactive Protein 30.34 mg/dL (< or = 0.50); Calcium 8.3 mg/dL (8.4-10.2); Carbon Dioxide 25 mmol/L (22-29); Chloride 106 mmol/L (96-108); Creatinine Clr Calc Pharmacy 111.9; Estimated Glomerular Filt Rate > 60; Glucose Random 180 mg/dL (60-115); Sodium 142 mmol/L (135-145)
[2020-09-19 07:10] LABS: INTERNATIONAL NORM RATIO 1.4 (0.9-1.1); Prothrombin Time 16.9 SEC (10.8-13.0)
[2020-09-19 07:24] LABS: Procalcitonin 0.67 ng/mL
[2020-09-19 07:30] LABS: Ferritin 217 ng/mL (10-250)
[2020-09-19 07:57] LABS: SARS COV2 IgG Negative (Negative)
--- NOTE | 2020-09-19 10:08 | PC.NURSE ---
Addendum entered by Vicky Perla RN 09/19/20 18:47: Pt has remained stable on bipap on 31/07 100%. Sats reaching into the mid 90s while the patient is still and restful. Addendum entered by Vicky Perla RN 09/19/20 16:54: At 1300 pt pulled off bipap mask r/t agitation. Mask was broken. Pt cyanotic with sats i 50s. Bipap mask placed as soon as possible and sats returned to 80s though had a difficult time returning into the 90s and therefore respiratory was called to increase bipap settings from 27/07 to 31/07. Addendum entered by Vicky Perla RN 09/19/20 11:48: At 10:30 pt had short bursts of agitation pulling at medical devices and thrashing in bed. Pt putting self in prone position. Pt resituated and bed linens changed. Pt remains prone with bipap on. Once settled down sats in low 90s on 100%fio2. Pt remains calm and at this time. Fentanyl drip remains off. Original Note: Pt confused and drowst. Fentanyl drip discussed in rounds.Fentanyl turned off and all narcotics to be DCs at this time until MD re-evaluates mental status. PT remains on bipap 27/07 100%fio2 with sats in low 90s. Sats drop in to the 80s with any activity.
[2020-09-19 10:35] LABS: Glucose, Whole Blood 171 mg/dL (60-115)
[2020-09-19] MEDS: methylPREDNISolone Sod Succ/PF 125 MG/2 ML VIAL 80 MG IVPUSH ×2 (11:23→20:15)
[2020-09-19] MEDS: Famotidine/PF 20 MG/2 ML VIAL 40 MG IVPUSH ×2 (11:23→20:16)
[2020-09-19] MEDS: Enoxaparin Sodium 150 MG/ML SYRINGE 120 MG SUBCUT ×2 (11:23→21:10)
--- NOTE | 2020-09-19 13:24 | PM.CCPN ---
Subjective Subjective Date of Service: 09/19/20 Interval History: 65-year-old morbidly obese diabetic hypertensive female with acute hypoxic respiratory failure due to bilateral COVID-19 pneumonitis with ARDS developing a little bit of encephalopathy with agitation but completely refusing intubation when she was in a perfect frame of mind and that is been well documented but currently holding our own with saturations of 90-92% on BiPAP with volumes in the mid to high 400s but of course on a 100% FiO2 metabolically stable with stable lab work Physical Exam Vital Signs: Vital Signs: Last Vital Signs Temp 98.4 F 09/19/20 12:00 Pulse 91 09/19/20 12:00 Resp 28 H 09/19/20 12:00 BP 137/76 09/19/20 12:00 Pulse Ox 93 09/19/20 12:00 Body Mass Index 46.4 Const: Other: neurologically nonfocal with normal cranial nerve exam skin normal with no breakdown no wounds no rash and no acrocyanosis abdomen is morbidly obese but good bowel sounds and no organomegaly cardiac exam with no neck vein distension CVP measuring at 3 and normal S1 normal S2 with no gallops no murmurs and good bilateral carotid upstrokes Objective Data Labs CBC & Chem 7: 09/19/20 05:33 09/19/20 05:33 Labs: Laboratory Results - last 24 hr 09/18/20 09/18/20 09/18/20 04:29 16:17 18:06 WBC RBC Hgb Hct MCV MCH MCHC RDW Plt Count MPV Immature Gran % (Auto) Neut % (Auto) Lymph % (Auto) Cavalier % (Auto) Eos % (Auto) Baso % (Auto) Lymph # (Auto) Cavalier # (Auto) Eos # (Auto) Baso # (Auto) Abs Immat Gran (auto) Absolute Neuts (auto) Absolute Nucleated RBC Nucleated RBC % (auto) PT INR D-Dimer VBG pH VBG pCO2 VBG pO2 VBG HCO3 VBG O2 Saturation VBG Base Excess Sodium Potassium Chloride Carbon Dioxide Anion Gap BUN Creatinine Estim Creat Clear Calc Estimated GFR POC Glucose 217 H 171 H Random Glucose Calcium Ferritin C-Reactive Protein Procalcitonin SARS-CoV-2 IgG Ab Negative 09/18/20 09/19/20 09/19/20 22:34 03:10 05:33 WBC RBC Hgb Hct MCV MCH MCHC RDW Plt Count MPV Immature Gran % (Auto) Neut % (Auto) Lymph % (Auto) Cavalier % (Auto) Eos % (Auto) Baso % (Auto) Lymph # (Auto) Cavalier # (Auto) Eos # (Auto) Baso # (Auto) Abs Immat Gran (auto) Absolute Neuts (auto) Absolute Nucleated RBC Nucleated RBC % (auto) PT 16.9 H INR 1.4 H D-Dimer VBG pH VBG pCO2 VBG pO2 VBG HCO3 VBG O2 Saturation VBG Base Excess Sodium Potassium Chloride Carbon Dioxide Anion Gap BUN Creatinine Estim Creat Clear Calc Estimated GFR POC Glucose 169 H 169 H Random Glucose Calcium Ferritin C-Reactive Protein Procalcitonin SARS-CoV-2 IgG Ab 09/19/20 09/19/20 09/19/20 05:33 05:33 05:33 WBC 9.4 RBC 4.20 Hgb 10.8 L Hct 35.8 L MCV 85.2 MCH 25.7 L MCHC 30.2 L RDW 15.9 Plt Count 243 MPV 11.4 Immature Gran % (Auto) 1.7 H Neut % (Auto) 86.4 H Lymph % (Auto) 9.0 L Cavalier % (Auto) 2.7 Eos % (Auto) 0.0 Baso % (Auto) 0.2 Lymph # (Auto) 0.8 L Cavalier # (Auto) 0.3 Eos # (Auto) 0.0 Baso # (Auto) 0.0 Abs Immat Gran (auto) 0.16 H Absolute Neuts (auto) 8.1 Absolute Nucleated RBC 0.050 H Nucleated RBC % (auto) 0.5 H PT INR D-Dimer 925 VBG pH VBG pCO2 VBG pO2 VBG HCO3 VBG O2 Saturation VBG Base Excess Sodium 142 Potassium 5.0 Chloride 106 Carbon Dioxide 25 Anion Gap 16 BUN 19 H Creatinine 0.67 Estim Creat Clear Calc 111.9 Estimated GFR > 60 POC Glucose Random Glucose 180 H Calcium 8.3 L Ferritin 217 C-Reactive Protein 30.34 H Procalcitonin SARS-CoV-2 IgG Ab 09/19/20 09/19/20 09/19/20 05:33 05:33 06:35 WBC RBC Hgb Hct MCV MCH MCHC RDW Plt Count MPV Immature Gran % (Auto) Neut % (Auto) Lymph % (Auto) Cavalier % (Auto) Eos % (Auto) Baso % (Auto) Lymph # (Auto) Cavalier # (Auto) Eos # (Auto) Baso # (Auto) Abs Immat Gran (auto) Absolute Neuts (auto) Absolute Nucleated RBC Nucleated RBC % (auto) PT INR D-Dimer VBG pH 7.33 VBG pCO2 57 VBG pO2 56 VBG HCO3 29 VBG O2 Saturation 87.1 VBG Base Excess 2.5 Sodium Potassium Chloride Carbon Dioxide Anion Gap BUN Creatinine Estim Creat Clear Calc Estimated GFR POC Glucose 181 H Random Glucose Calcium Ferritin C-Reactive Protein Procalcitonin 0.67 SARS-CoV-2 IgG Ab 09/19/20 10:02 WBC RBC Hgb Hct MCV MCH MCHC RDW Plt Count MPV Immature Gran % (Auto) Neut % (Auto) Lymph % (Auto) Cavalier % (Auto) Eos % (Auto) Baso % (Auto) Lymph # (Auto) Cavalier # (Auto) Eos # (Auto) Baso # (Auto) Abs Immat Gran (auto) Absolute Neuts (auto) Absolute Nucleated RBC Nucleated RBC % (auto) PT INR D-Dimer VBG pH VBG pCO2 VBG pO2 VBG HCO3 VBG O2 Saturation VBG Base Excess Sodium Potassium Chloride Carbon Dioxide Anion Gap BUN Creatinine Estim Creat Clear Calc Estimated GFR POC Glucose 171 H Random Glucose Calcium Ferritin C-Reactive Protein Procalcitonin SARS-CoV-2 IgG Ab Microbiology Microbiology Results: Microbiology 09/18/20 08:39 Blood - Venous Blood Culture - Preliminary No growth after 24 hours. 09/18/20 08:42 Blood - Venous Blood Culture - Preliminary No growth after 24 hours. 09/18/20 02:46 Blood - Venous Blood Culture - Preliminary No growth after 24 hours. 09/18/20 02:46 Blood - Venous Blood Culture - Preliminary No growth after 24 hours. Progress Note: A&P Assessment and plan (1) COVID-19: Status: Acute (2) Respiratory failure: Status: Acute (3) Encephalopathy acute: Status: Acute (4) Morbid obesity: Status: Acute Assessment and Plan: switching from it IV continuous insulin drip to subcutaneous coverage as the patient will remain NPO because of BiPAP dependence and will continue BiPAP support and possible use of dexmedetomidine for behavioral control but unfortunately we do not have the option of intubation Time Spent With Patient Time: Total time spent is greater than 50% in coordination of care (as documented) at patient's floor/unit and/or counseling patient: Total time spent with greater than 50% in coordination of care (as documented) at patient's floor/unit and/or counseling patient:: 25
[2020-09-19 13:39] LABS: Glucose, Whole Blood 236 mg/dL (60-115)
[2020-09-19] MEDS: Insulin Lispro 100 UNIT/ML 3 ML VIAL SUBCUT ×2 (13:42→18:20)
--- NOTE | 2020-09-19 14:51 | MHC.CM.PN ---
Pt remains in ICU with COVID PNA - still on BiPAP but not eminently in need of intubation at this time D/C plan is for home with possible services vs STR
--- NOTE | 2020-09-19 15:56 | W.PM.IDCN ---
History of Present Illness Data of Consult Service Date: 09/19/20 Requesting physician: Anne Acuna Primary Care Provider: Unknown Physician HPI Reason for consult: hypoxic respiratory failure She presents to hospital with shortness of breath as well as fatigue for 10 days She has no fever or chills. She has symptoms last week and tested positive for COVID She has been placed on prone positioning Exposure is not certain Review of Systems Review of Systems: Yes unobtainable due to endotracheal tube PMFSH Past Medical History Medical History Diabetes mellitus, type 2 Hypertension Morbid obesity Social History Social History Household Members: Unknown / Unable to assess Housing: Unknown / Unable to assess Alcohol intake: unknown Smoking Status: Unknown if ever smoked Use of substances other than those prescribed or required for medical reasons: Unable to respond Substance Use Type: Unknown Substance Use Type Other:: DENIES SUBSTANCE USE Last Used Substance: Unknown Currently Displaying Signs/Symptoms of Drug Intoxication Withdrawal: No Any prior treatment program specific to substance use: No Spiritual Healthcare Practices: UNABLE TO ASSESS Denominational Healthcare Practices: UNABLE TO ASSESS Cultural Healthcare Practices: UNABLE TO ASSESS Advance Directives: Yes Advance Directives Information Provided: Yes (DECLINED) Advance Directives on File: Yes (OBTAINED RECORDS FROM [facility]) Advance Directives Date on File: 09/18/20 Do you have thoughts of harming others: None Do you have a plan to hurt others: No Plan service: No Current occupational status: retired Meds Allergies Allergy/AdvReac Type Severity Reaction Status Date / Time No Known Allergies Allergy Verified 09/18/20 02:16 Home Medications Medication Instructions Recorded Confirmed Type clonazepam 0.5 mg PO BEDTIME 09/18/20 09/18/20 History dulaglutide [Trulicity] 0.75 mg SUBCUT USEASDIRECTD 09/18/20 09/18/20 History levothyroxine 75 mcg PO DAILY@0600 09/18/20 09/18/20 History omeprazole 20 mg PO DAILY 09/18/20 09/18/20 History paroxetine HCl 40 mg PO DAILY 09/18/20 09/18/20 History rosuvastatin 40 mg PO DAILY 09/18/20 09/18/20 History Physical Exam Vital Signs: Vital Signs: Last Vital Signs Temp 99 F 09/19/20 15:00 Pulse 92 09/19/20 15:00 Resp 27 H 09/19/20 15:34 BP 130/72 09/19/20 15:00 Pulse Ox 87 L 09/19/20 15:00 Body Mass Index 46.4 Const: General: cooperative HENMT: Head: Yes normal to inspection Mouth: Normal oral and palatal mucosa present Eyes: General: appearance normal, both eyes and all related structures Resp: Effort & Inspection: normal respiratory effort Cardio: Rate: regular rate Rhythm: regular rhythm GI: Inspection: Yes normal to inspection : General: Yes no CVA tenderness Back/Spine/Pelvis: Back: no CVA tenderness Skin: General skin exam: no rashes or lesions noted Extrem: General: Yes normal to inspection Assessment and Plan (1) COVID-19: Problem details: hypoxic respiratory failure she has positive COVID test last week doubt respiratory co-infection but possible Status: Acute Would continue Dexamethasone Would continue Doxycycline,possibly 7 days (2) Respiratory failure: Status: Acute (3) Encephalopathy acute: Status: Acute Results Labs CBC & Chem 7: 09/19/20 05:33 09/19/20 05:33 Labs: Short CBC 09/19/20 Range/Units 05:33 WBC 9.4 (4.8-10.8) X10*3/uL Hgb 10.8 L (12.0-16.0) g/dl Hct 35.8 L (37-47) % Plt Count 243 (160-400) X10*3/uL BMP 09/19/20 05:33 Sodium 142 Potassium 5.0 Chloride 106 Carbon Dioxide 25 BUN 19 H Creatinine 0.67 Calcium 8.3 L Microbiology Microbiology Results: Microbiology 09/18/20 08:39 Blood - Venous Blood Culture - Preliminary No growth after 24 hours. 09/18/20 08:42 Blood - Venous Blood Culture - Preliminary No growth after 24 hours. 09/18/20 02:46 Blood - Venous Blood Culture - Preliminary No growth after 24 hours. 09/18/20 02:46 Blood - Venous Blood Culture - Preliminary No growth after 24 hours.
[2020-09-19 18:01] LABS: Glucose, Whole Blood 231 mg/dL (60-115)
[2020-09-19] MEDS: Doxycycline Hyclate 100 MG in 0.9 % Sodium Chloride 250 ML 250 MG IV (18:20)
[2020-09-20] VITALS (28 sets, daily range): BP systolic 97–171; BP diastolic 60–104; PULSE 58–100; RESP 14–46; TEMP 36–37.5; O2SAT 70–101; BMI 46.7
[2020-09-20] MEDS: fentaNYL citrate/PF 100 MCG/2 ML VIAL 50 MCG IVPUSH (00:25)
[2020-09-20] MEDS: Albuterol/Iprat 2.5/0.5MG 3 ML AMPUL.NEB INHALE ×2 (00:26→04:04)
[2020-09-20] MEDS: dexmedeTOMIDidine HCL/NS 400 MCG/100 ML INFUS..BTL 12.65 MCG IVCONT (01:23)
[2020-09-20] MEDS: dexmedeTOMIDidine HCL/NS 400 MCG/100 ML INFUS..BTL 28.46 MCG IVCONT (03:56)
[2020-09-20] MEDS: LORazepam 2 MG/ML VIAL 1 MG IVPUSH ×4 (04:00→21:27)
--- NOTE | 2020-09-20 04:50 | PC.NURSE ---
CARE ASSUMED 23:15...REMAINS BIPAP 18/10 AND 100% FIO2...TV>500...RR 32-40...DYSPNEIC AT REST..SAO2 85% SUPINE...SAO2 90-93% WITH RIGHT SIDE OR LEFT SIDE >90 DEGREES DOWNWARD...LUNGS DIMINISHED THROUGHOUT...INTERMITTANTL RESTLESS...PULLS OFF BIPAP MASK AND/OR SAO2 MONITOR..RAPIDLY DESATURATES TO 70% OFF BIPAP...LENGTHY RECOVERY TIME TO SAO2 BASE-LINE ON BIPAP...ICU PA PRESENT...FENTANYL 50 MCG IV FOR WORK OF BREATHING AND RESTLESSNESS WITH MARGINAL EFFECT...CONTINUES PULLING OFF BIPAP...PRECIDEX DRIP STARTED AND TITRATED TO 1.0 MCG/KG/MIN...DECREASED RESTLESSNESS BUT CONTINUES TO PULL OFF BIPAP INTERMITTANTLY...PER PA ATIVAN 1 MG IV X1...BP STABLE...RR REMAINS 28-40 & TV>500cc...LEVINE WITH LOW-OUTPUT..PA AWARE...PATIENT AFFIRMED DNR/DNI STATUS TO PA PREVIOUSLY ORDERED/NOTED
[2020-09-20] MEDS: Doxycycline Hyclate 100 MG in 0.9 % Sodium Chloride 250 ML 166.67 MG IV ×2 (05:49→17:56)
[2020-09-20] MEDS: dexmedeTOMIDidine HCL/NS 400 MCG/100 ML INFUS..BTL 47.43 MCG IVCONT ×4 (05:53→12:44)
[2020-09-20 06:12] LABS: Hematocrit 37.9 % (37-47); Hemoglobin 11.2 g/dl (12.0-16.0); Mean Corpuscular HGB Conc 29.6 g/dl (31.0-35.0); Mean Corpuscular Hemoglobin 25.7 pg (27.0-33.0); Mean Corpuscular Volume 87.1 fL (80-98); Mean Platelet Volume 11.1 fL (9.4-12.3); NRBC Pct Auto 1.2 /100WBC (0.0-0.2); Platelet Count 208 X10*3/uL (160-400); Red Blood Count 4.35 X10*6/uL (4.20-5.50); Red Cell Distribution Width 15.8 % (11.0-16.0)
[2020-09-20 06:21] LABS: INTERNATIONAL NORM RATIO 1.4 (0.9-1.1); Prothrombin Time 17.2 SEC (10.8-13.0)
[2020-09-20 06:23] LABS: Partial Thromboplastin Time 41.6 SEC (24.1-38.0)
[2020-09-20 06:29] LABS: PCO2 VBG 48 mmhg; PO2 VBG 54 mmhg; pH VBG 7.35 (7.32-7.43)
[2020-09-20 06:30] LABS: Base Excess VBG 0.1 mmol/L; HCO3 VBG 26 mmol/L; Oxygen Saturation VBG 87.7 %
--- NOTE | 2020-09-20 06:33 | PC.NURSE ---
CONTINUED WITH PERIODS OF AGITATION...PRECIDEX DRIP TO 1.5 MCG/KG/MIN...DESPITEW DRIP PATIENT PULLED OFF AND DESTROYED BIPAP MASK...PATIENT DUSKY/CYANOTIC/SAO2 30% WITHOUT O2...100% NRB MASK PLACED AND SAO2 ,40%..RT PAGE STAT..NEW BIPAP MASK PLACED AND CONTINUES 100% FIO2 VIA BIPAP 31/07..LENGTHY RALLY TIME TO ACHIEVE SAO2 88-89% ON BIPAP...CONTINUED TO ATTEMPT TO REMOVE BIPAP..PA PRESENT...ATIVAN 1MG IV GIVEN STAT X1 WITH GRADUAL RESDTFUL EFRFECT..CONTINUES ON PRECIDEX DRI
[2020-09-20 06:41] LABS: D Dimer 1320 NG/ML
[2020-09-20 06:42] LABS: Anion Gap 17 (12-20); B Type Natriuretic Peptide 191 pg/mL (<100); Blood Urea Nitrogen 27 mg/dL (9-16); C Reactive Protein 16.59 mg/dL (< or = 0.50); Calcium 8.4 mg/dL (8.4-10.2); Carbon Dioxide 25 mmol/L (22-29); Chloride 107 mmol/L (96-108); Creatinine Clr Calc Pharmacy 92.6; Estimated Glomerular Filt Rate > 60; Glucose Random 349 mg/dL (60-115); Lactate Dehydrogenase 658 U/L (122-220); Magnesium 2.4 mg/dL (1.6-2.6); Phosphorus 3.5 mg/dL (2.7-4.5); Potassium 4.6 mmol/l (3.3-5.1); Sodium 144 mmol/L (135-145)
--- NOTE | 2020-09-20 08:36 | P.CDIC_ITS ---
[facility] Concurrent Query Service Date: 10/15/20 Documentation Clarification: Please clarify if you are treating a proba ble/suspected/likely or confirmed: Specifics: Septic Encephalopathy, POA Toxic/metabolic Encephalopathy POA or other Please specify if known Provider Response: Other Other Diagnosis: Septic encephalopathy due to COVID-19 PLEASE DO NOT DELETE/MODIFY EXISTING CONTENT Additional information is needed in order to code to the highest accuracy and appropriate Severity of Illness (SOI). Please clarify the information noted below in your progress notes and discharge summary. Risk Factors/Clinical Indicators/Treatments PN: COVID-19 pneumonitis w ARDS developing a little bit of encephalopathy with agitation. Refusing to be intubated, Ed unable to review systems due to mental status. CDS: Ina Couch [facility], [facility] Contact Number: [phone] Please Review the information above and exercise your independent professional judgment in responding to the query. If you concur, pleas document in the PROGRESS NOTES and DISCHARGE SUMMARY. If you do not agree with the query, please document in the query above. THIS QUERY IS PART OF THE PERMANENT MEDICAL RECORD
[2020-09-20 08:41] LABS: Ferritin 329 ng/mL (10-250)
[2020-09-20 08:43] LABS: Glucose, Whole Blood 344 mg/dL (60-115)
[2020-09-20] MEDS: Insulin Lispro 100 UNIT/ML 3 ML VIAL SUBCUT ×3 (08:49→18:02)
[2020-09-20] MEDS: Enoxaparin Sodium 150 MG/ML SYRINGE 120 MG SUBCUT (08:49)
[2020-09-20] MEDS: Famotidine/PF 20 MG/2 ML VIAL 40 MG IVPUSH (08:49)
[2020-09-20] MEDS: methylPREDNISolone Sod Succ/PF 125 MG/2 ML VIAL 80 MG IVPUSH (08:50)
[2020-09-20 09:14] LABS: Band Neutrophils Percent 2 % (3-5); Lymphocytes Absolute Manual 0.5 X10*3/uL (0.6-4.8); Lymphocytes Percent Manual 8 % (20-40); Monocytes Absolute Manual 0.2 X10*3/uL (0.0-1.2); Monocytes Percent Manual 3 % (2-11); Neutrophils Absolute Manual 5.3 X10*3/uL (2.2-7.9); Neutrophils Percent Manual 87 % (45-73)
[2020-09-20 09:16] LABS: Polychromasia 1+
[2020-09-20 09:17] LABS: RBC Morphology NOTED; Tear Drop Cells 1+
[2020-09-20 09:18] LABS: Platelet Estimate NORMAL (NORMAL); Platelet Morphology Comment NORMAL
[2020-09-20 09:19] LABS: Macrocytosis 1+
--- NOTE | 2020-09-20 10:34 | P.CDIC_ITS ---
CDI Concurrent Query Service Date: 10/15/20 Documentation Clarification: Please clarify if you are treating a proba ble/suspected/likely or confirmed: Consistency: Viral Sepsis due to Covid-19/pneumonitis/ARDS w acute hypoxic respiratory failure POA Covid-19 pneumonitis/ARDS with acute hypoxic respiratory failure Please specify if known Provider Response: Other Other Diagnosis: Agree with viral sepsis from COVID-19 PLEASE DO NOT DELETE/MODIFY EXISTING CONTENT Additional information is needed in order to code to the highest accuracy and appropriate Severity of Illness (SOI). Please clarify the information noted below in your progress notes and discharge summary. Risk Factors/Clinical Indicators/Treatments H&P: Acute hypoxic respiratory failure, Viral Sepsis, Covid-19 Assessment/plan: Acute hypoxic respiratory failure, Viral Sepsis in the setting of COVID-19. LA 3.7 TEMP 98.8 100.6 WBC 16.3 14.7 RR 40 33 pulse ox 88 L on supplemental oxygen. Dexamethasone, fluids, Doxycycline ICU admit - Covid-19/pneumonitis/ARDS, Acute hypoxic respiratory failure, encephalopathy CDS: Ina Couch [facility], [facility] Contact Number: [phone] Please Review the information above and exercise your independent professional judgment in responding to the query. If you concur, pleas document in the PROGRESS NOTES and DISCHARGE SUMMARY. If you do not agree with the query, please document in the query above. THIS QUERY IS PART OF THE PERMANENT MEDICAL RECORD
[2020-09-20] MEDS: KCl 20 mEq in 0.45% Sod 20 MEQ/1,000 ML IV.SOLN 60 MEQ IVCONT (10:35)
[2020-09-20 11:53] LABS: Glucose, Whole Blood 324 mg/dL (60-115)
[2020-09-20] MEDS: Midazolam HCl/PF 2 MG/2 ML VIAL 5 MG IM ×2 (12:34→12:58)
--- NOTE | 2020-09-20 12:49 | PC.NURSE ---
Addendum entered by Anabella Foster RN 09/20/20 18:18: PTS HR NOTED TO BE SLOWLY DECREASING INTO THE 50S, 02 MID 80S, AND RR 30-50S. FAMILY CALLED AND UPDATED WITH CHANGES. FAMILY GIVEN PERMISSION TO COME IN AND SAY GOODBYE. AWAITING THEIR ARRIVAL. Addendum entered by Anabella Foster RN 09/20/20 15:46: PRECEDEX GTT D/C PER MD AT 1500. NEW ORDER FOR SCHEDULED ATIVAN ADMINISTERED. PT APPEARS LESS RESTLESS, BUT RR CONTINUES TO BE ELEVATED IN 40S. 02 AROUND 80-83% ON BIPAP 20/10 ON 100%. MD AWARE. Addendum entered by Anabella Foster RN 09/20/20 13:16: DUE TO CONTINUED RESTLESSNESS, PULLING OF LINES AND TUBES A SECOND DOSE OF 5MG IM VERSED ADMINISTERED TO RIGHT DELTOID PER MD. MD BEDSIDE TO ASSESS PT. PT STILL UNABLE TO FOLLOW COMMANDS. WILL CONTINUE TO MONITOR. Original Note: AT APPROX 1200 PT DESAT TO 30% DUE TO BIPAP BEING RIPPED OFF, RR 50-60S, PT THRASHING IN BED, RIPPED OUT NEW IV, UNABLE TO FOLLOW COMMANDS. MD NOTIFIED. MD ORDERED AND ADMINISTERED VERSED 5MG IM TO LEFT DELTOID. WILL CONTINUE TO MONITOR.
[2020-09-20 15:59] LABS: Glucose, Whole Blood 247 mg/dL (60-115)
[2020-09-20 18:02] LABS: Glucose, Whole Blood 263 mg/dL (60-115)
--- NOTE | 2020-09-20 18:05 | PM.CCPN ---
Subjective Subjective Date of Service: 09/20/20 Interval History: 65-year-old morbidly obese type 2 diabetic and hyperlipidemic and replaced hypothyroid presents with acute hypoxemic respiratory failure from bilateral COVID-19 pneumonitis and ARDS who when she had complete clarity of mind documented by all in indicated very strongly that she did not want intubation nor resuscitation and this was discussed with her sister who was listed as a proxy and clearly we will not reverse her wishes she is becoming increasingly encephalopathic compromising the BiPAP with an which is currently at 100% and were increasing inspiratory pressure to generate tidal volumes greater than 500-550 cc but at best when quiet she has an oxygen saturation of 86-87% respiratory rate approximating 35-40 stable blood pressure 113/66 but with a diminishing urinary volume and in part because she has taken out her IVs and had refused a central line access and I think were coming do very close to the end because at this point we need to keep her and sedated with benzodiazepine to control behavior and I feel that the BiPAP will become counter productive but she has absolutely distal out us from intubation Physical Exam Vital Signs: Vital Signs: Last Vital Signs Temp 97.2 F 09/20/20 17:00 Pulse 58 09/20/20 17:00 Resp 44 H 09/20/20 17:00 BP 113/67 09/20/20 17:00 Pulse Ox 85 L 09/20/20 17:00 Body Mass Index 46.7 Const: Other: arousable but sedated right now no longer really answering appropriately and very highly agitated and severely desaturates when BiPAP is removed even for seconds with oxygen saturations dropping into the 30s skin color is normal there is no acrocyanosis no wounds no pressure sores neurologically nonfocal cardiovascular cannot assess neck veins to uncooperative for bedside echo but has adequate bilateral carotid upstrokes no audible bruits just a mild increase in BNP to 190 with positive intake and output record abdomen markedly obese but good bowel sounds and nontender Objective Data Labs CBC & Chem 7: 09/20/20 05:43 09/20/20 05:43 Labs: Laboratory Results - last 24 hr 09/20/20 09/20/20 09/20/20 05:43 05:43 05:43 WBC 6.0 RBC 4.35 Hgb 11.2 L Hct 37.9 MCV 87.1 MCH 25.7 L MCHC 29.6 L RDW 15.8 Plt Count 208 MPV 11.1 Immature Gran % (Auto) Cancelled Neut % (Auto) Cancelled Lymph % (Auto) Cancelled [place] % (Auto) Cancelled Eos % (Auto) Cancelled Baso % (Auto) Cancelled Lymph # (Auto) Cancelled [place] # (Auto) Cancelled Eos # (Auto) Cancelled Baso # (Auto) Cancelled Abs Immat Gran (auto) Cancelled Absolute Neuts (auto) Cancelled Absolute Nucleated RBC 0.070 H Nucleated RBC % (auto) 1.2 H Neutrophils % (Manual) 87 H Band Neutrophils % 2 L Lymphocytes % (Manual) 8 L Monocytes % (Manual) 3 Abs Neuts (Manual) 5.3 Lymphocytes # (Manual) 0.5 L Monocytes # (Manual) 0.2 Platelet Estimate NORMAL Plt Morphology Comment NORMAL RBC Morphology NOTED Polychromasia 1+ Macrocytosis 1+ Tear Drop Cells 1+ PT 17.2 H INR 1.4 H APTT 41.6 H D-Dimer 1320 VBG pH VBG pCO2 VBG pO2 VBG HCO3 VBG O2 Saturation VBG Base Excess Sodium Potassium Chloride Carbon Dioxide Anion Gap BUN Creatinine Estim Creat Clear Calc Estimated GFR POC Glucose Random Glucose Calcium Phosphorus Magnesium Ferritin Lactate Dehydrogenase C-Reactive Protein B-Natriuretic Peptide 191 H 09/20/20 09/20/20 09/20/20 05:43 05:43 08:40 WBC RBC Hgb Hct MCV MCH MCHC RDW Plt Count MPV Immature Gran % (Auto) Neut % (Auto) Lymph % (Auto) [place] % (Auto) Eos % (Auto) Baso % (Auto) Lymph # (Auto) [place] # (Auto) Eos # (Auto) Baso # (Auto) Abs Immat Gran (auto) Absolute Neuts (auto) Absolute Nucleated RBC Nucleated RBC % (auto) Neutrophils % (Manual) Band Neutrophils % Lymphocytes % (Manual) Monocytes % (Manual) Abs Neuts (Manual) Lymphocytes # (Manual) Monocytes # (Manual) Platelet Estimate Plt Morphology Comment RBC Morphology Polychromasia Macrocytosis Tear Drop Cells PT INR APTT D-Dimer VBG pH 7.35 VBG pCO2 48 VBG pO2 54 VBG HCO3 26 VBG O2 Saturation 87.7 VBG Base Excess 0.1 Sodium 144 Potassium 4.6 Chloride 107 Carbon Dioxide 25 Anion Gap 17 BUN 27 H Creatinine 0.80 Estim Creat Clear Calc 92.6 Estimated GFR > 60 POC Glucose 344 H Random Glucose 349 H D Calcium 8.4 Phosphorus 3.5 Magnesium 2.4 Ferritin 329 H Lactate Dehydrogenase 658 H C-Reactive Protein 16.59 H B-Natriuretic Peptide 09/20/20 09/20/20 09/20/20 11:50 15:56 17:58 WBC RBC Hgb Hct MCV MCH MCHC RDW Plt Count MPV Immature Gran % (Auto) Neut % (Auto) Lymph % (Auto) [place] % (Auto) Eos % (Auto) Baso % (Auto) Lymph # (Auto) [place] # (Auto) Eos # (Auto) Baso # (Auto) Abs Immat Gran (auto) Absolute Neuts (auto) Absolute Nucleated RBC Nucleated RBC % (auto) Neutrophils % (Manual) Band Neutrophils % Lymphocytes % (Manual) Monocytes % (Manual) Abs Neuts (Manual) Lymphocytes # (Manual) Monocytes # (Manual) Platelet Estimate Plt Morphology Comment RBC Morphology Polychromasia Macrocytosis Tear Drop Cells PT INR APTT D-Dimer VBG pH VBG pCO2 VBG pO2 VBG HCO3 VBG O2 Saturation VBG Base Excess Sodium Potassium Chloride Carbon Dioxide Anion Gap BUN Creatinine Estim Creat Clear Calc Estimated GFR POC Glucose 324 H 247 H 263 H Random Glucose Calcium Phosphorus Magnesium Ferritin Lactate Dehydrogenase C-Reactive Protein B-Natriuretic Peptide Microbiology Microbiology Results: Microbiology 09/18/20 08:42 Blood - Venous Blood Culture - Preliminary No growth after 48 hours. 09/18/20 08:39 Blood - Venous Blood Culture - Preliminary No growth after 48 hours. 09/18/20 02:46 Blood - Venous Blood Culture - Preliminary No growth after 48 hours. 09/18/20 02:46 Blood - Venous Blood Culture - Preliminary No growth after 48 hours. Progress Note: A&P Assessment and plan (1) COVID-19: Problem details: hypoxic respiratory failure she has positive COVID test last week doubt respiratory co-infection but possible Status: Acute (2) Morbid obesity: Status: Acute (3) Encephalopathy acute: Status: Acute (4) Respiratory failure: Status: Acute Assessment and Plan: prognosis is extremely poor and we were out of options and she will likely deteriorate and at that point we will add further comfort measures just changed her from positive-pressure to nasal cannula and probably add a morphine drip for comfort Time Spent With Patient Time: Total time spent is greater than 50% in coordination of care (as documented) at patient's floor/unit and/or counseling patient: Total time spent with greater than 50% in coordination of care (as documented) at patient's floor/unit and/or counseling patient:: 30
[2020-09-20] MEDS: Furosemide 20 MG/2 ML VIAL IVPUSH (18:16)
[2020-09-20] MEDS: Midazolam HCl/PF 2 MG/2 ML VIAL IVPUSH (19:38)
[2020-09-20] MEDS: LORazepam 2 MG/ML VIAL 1 MG IM (20:43)
[2020-09-20] MEDS: Morphine Sulfate 2 MG/ML CARTRIDGE IM (20:43)
--- NOTE | 2020-09-20 21:17 | PM.DDS ---
Discharge Sum: Prov Provider Primary care physician: Unknown Physician <DEEPAK Schumacher - Last Filed: 09/20/20 21:21> Consults: 09/18/20 06:54 Consult to Infectious Diseases Stat Consulting Provider: Izabel Chaparro Reason for consultation: COVID PT- REMDESIVIR REQUEST <DEEPAK Schumacher - Last Filed: 09/20/20 21:21> Discharge Sum: Diag Contributing Factors (1) COVID-19: (2) Morbid obesity: (3) Encephalopathy acute: (4) Respiratory failure: (5) Diabetes mellitus, type 2: Discharge Sum: Summary Date and Time Date of admission: 09/18/20 05:20 <DEEPAK Schumacher - Last Filed: 09/20/20 21:21> Additional Data Confirmation of as documented by pronouncing clinician: no pulse, no respirations, no heart sounds and pupils fixed and dilated <DEEPAK Schumacher - Last Filed: 09/20/20 21:21> Family: contacted (visited earlier today) <DEEPAK Schumacher - Last Filed: 09/20/20 21:21> Attending/PCP notified?: No <DEEPAK Schumacher - Last Filed: 09/20/20 21:21> Attending physician: MD Kerrie Cortes PA-C present at time of , pronounced and notified HCP. <DEEPAK Schumacher - Last Filed: 09/20/20 21:21> Was code activated?: No <DEEPAK Schumacher - Last Filed: 09/20/20 21:21> Autopsy requested?: No <DEEPAK Schumacher - Last Filed: 09/20/20 21:21> medical claims examiner notified?: No <DEEPAK Schumacher - Last Filed: 09/20/20 21:21> Organ bank notified?: Yes <DEEPAK Schumacher - Last Filed: 09/20/20 21:21> Advance directives: Yes <DEEPAK Schumacher - Last Filed: 09/20/20 21:21> Hospice patient?: No <DEEPAK Schumacher - Last Filed: 09/20/20 21:21>
[2020-09-20] MEDS: Morphine Sulfate 4 MG/ML CARTRIDGE 3 MG IM (21:23)
--- NOTE | 2020-09-20 23:55 | PC.NURSE ---
Patient at 2100. [place] [employer] notified, pt was declined; this RN spoke with Jennifer, case #[id number]. Pt family was updated by ICU PA.
== END 2020-09-20 21:00 | disposition expired | DRG 871 ==
LOC: HO.ED 05:28 → HO.ICU 06:49
PROVIDERS: Physician Assistant; Physician Assistant Medical; Admitting Provider Anesthesiology; Emergency Provider Emergency Medicine Emergency Medical Services; Visit Provider Internal Medicine Cardiovascular Disease
DX: A41.89 Other specified sepsis (principal); U07.1 COVID-19; J80 Acute respiratory distress syndrome; Z68.42 Body mass index [BMI] 45.0-49.9, adult; G93.40 Encephalopathy, unspecified; E78.5 Hyperlipidemia, unspecified; E66.01 Morbid (severe) obesity due to excess calories; E11.9 Type 2 diabetes mellitus without complications; I10 Essential (primary) hypertension; K21.9 Gastro-esophageal reflux disease without esophagitis; E03.9 Hypothyroidism, unspecified; Z79.890 Hormone replacement therapy; Z79.899 Other long term (current) drug therapy
CPT/HCPCS: 0241U; 36415; 71045; 80048; 80076; 82728; 82803; 82947; 83605; 83615; 83735; 83880; 84100; 84145; 84484; 85007; 85025; 85027; 85379; 85610; 85730; 86140; 86769; 87040; 93005; 94640; 94644; 94660; 94799; 96365; 96366; 96367; 96372; 96374; 96376; 99285; 99291; 99292; J1100; J1650; J1940; J2060; J2250; J2270; J2930; J3010